=== PATIENT | female | born 1990 | race Caucasian/White ===

== ENCOUNTER → 2017-02-12 | Emergency (ER) | payer MEDICAID, OTHER ==
[~2017-02-12] MED LIST: FAMO20 PO; IBUP-232 PO; REGL10TA5 PO; ZOFR4TAB3 SL
--- NOTE | 2017-02-12 20:48 | PD ---
HPI Chief Complaint viability Date Seen: Feb 12, 2017 Travel History International Travel<30 Days: No Contact w/Intl Traveler<30Days: No Known Affected Area: No History of Present Illness HPI 26-year-old female who is at 32 weeks and 1 day comes in for viability. She is entering [facility] and has been weaned off for her Subutex. He will be in rehabilitation for the remainder of her and has seen an environmental inspector in [facility] and is transferring to Dr. Covarrubias for continued care. She has no current complaints. Para: 1 : 2 History Past Medical History Medical History: Denies Significant Hx Obstetric History Obstetric History Spontaneous vaginal delivery Past Surgical History Surgical History: No Previous Surgery Family History Family History: Negative Social History Alcohol Use: No Tobacco Use: No Substance Abuse: No Allergies-Medications (Allergen,Severity, Reaction): Coded Allergies: No Known Allergies (Verified , 08/17/14) Home Meds Active Scripts Metoclopramide Hcl (Reglan)10 Mg Tab10 Mg PO ONCE #20 TAB Prov:Valdemar Edwards DO 08/17/14 Reported Medications Famotidine (Pepcid 20 Mg Tab)20 Mg Tab20 Mg PO DAILY 08/17/14 Ondansetron (Zofran ODT)4 Mg Tab4 Mg SL Q6H PRN (NAUSEA) FOR NAUSEA/VOMITING 08/17/14 Review of Systems Except as stated in HPI: all other systems reviewed are Neg Physical Exam Narrative GENERAL: Well-nourished, well-developed patient. SKIN: Warm and dry. HEAD: Normocephalic and atraumatic. EYES: No scleral icterus. No injection or drainage. ENT: No nasal drainage noted. Mucous membranes pink. Airway patent. NECK: Supple, trachea midline. No JVD. CARDIOVASCULAR: Regular rate and rhythm without murmurs, gallops, or rubs. RESPIRATORY: Breath sounds equal bilaterally. No accessory muscle use. BREASTS: Bilateral exam showed no masses , no retractions, no nipple discharge. ABDOMEN/GI: Abdomen soft, non-tender, bowel sounds present, no rebound, no guarding Gravid to [-34] weeks size FHT's: Category: [1-] Baseline: 140 Reactive: Moderate Variability: Moderate Decels: Absent EXTREMITIES: No cyanosis or edema. BACK: Nontender without obvious deformity. No CVA tenderness. NEUROLOGICAL: Awake and alert. Motor and sensory grossly within normal limits. Five out of 5 muscle strength in all muscle groups. Normal speech. Data Data Vital Signs Reviewed: Yes MDM Plan 26-year-old at 32 weeks and 1 day with a category 1 heart rate tracing She is released for rehabilitation Diagnosis Diagnosis: Primary Impression: complicated by subutex maintenance, antepartum Additional Impression: 32 weeks gestation of Disposition: DISCHARGE HOME Patient Instructions: General Instructions Additional Instructions: heart rate is noted to be in the 130's with accelerations into the 140's. no decelerations noted. moderate variability. Departure Forms: Tests/Procedures Kadie Dunham MD Feb 12, 2017 20:48
== END | disposition home or self-care (01) ==
LOC: HOBED 19:43
DX: O26.893 Other specified pregnancy related conditions, third trimester (principal); Z3A.32 32 weeks gestation of pregnancy
CPT/HCPCS: 99283

== ENCOUNTER 2017-03-25 16:40 | Inpatient (IN) | payer MEDICAID ==
[~2017-03-25] VITALS: Ht 162.6 cm; Wt 90.7 kg
[2017-03-25] VITALS (41 sets, daily range): BP systolic 101–136; BP diastolic 57–98; PULSE 66–89; RESP 18; TEMP 98
[~2017-03-25 16:40] MED LIST changes: -IBUP-232 PO
[2017-03-25] MEDS ORDERED: LACTATED RINGER'S 1000 ML INJ 1,000 ML IV PRN (17:22)
[2017-03-25] MEDS ORDERED: LACTATED RINGER'S 1000 ML INJ 1,000 ML IV SCH (17:22)
[2017-03-25] MEDS ORDERED: CITRIC ACID-SODIUM CITRATE LIQ 30 ML UDC PO SCH (17:30)
[2017-03-25] MEDS ORDERED: MINERAL OIL 10 ML VIAL TOPICAL PRN (17:30)
[2017-03-25] MEDS ORDERED: LIDOCAINE HCL 1% 50 ML VIAL INFIL PRN (17:30)
[2017-03-25] MEDS ORDERED: SODIUM CHLORID 0.9% 500 ML INJ 500 ML IV PRN (17:30)
[2017-03-25] MEDS ORDERED: OXYTOCIN 30 UNITS-500ML PREMIX 500 ML IV ONE (17:30)
[2017-03-25] MEDS ORDERED: OXYTOCIN 30 UNITS-500ML PREMIX 500 ML IV SCH (17:30)
[2017-03-25] MEDS ORDERED: LIDOCAINE HCL 1% 50 ML VIAL I-DERMAL PRN (17:30)
--- NOTE | 2017-03-25 17:30 | MH ---
cc: JET ARCOS DATE OF ADMISSION 03/25/2017 DATE OF 1990 REASON FOR ADMISSION 38 plus week intrauterine with gross rupture of membranes in office. Secondary diagnosis of residing at [facility], opiate addiction in recovery. Her initial care was at the halfway and then she was with us in her third trimester. She has had no labor, gestational diabetes or hypertensive disease. Her first baby was born quite rapidly. She had an ultrasound today that showed normal TAMIA in 06/16 biophysical profile with the baby in the 86 percentile. Exam in the office ___ 3 cm, 80% and -1. Her membranes were stripped and when she sat up she had a significant gush of pinkish watery fluid. heart rate was evaluated for several minutes and it was determined that she should go to labor and delivery. PHYSICAL EXAMINATION VITAL SIGNS: Her weight is at 200, blood pressure is 120/80. She did not give me a urine sample today. She is residing at [facility]. LUNGS: Her lungs are clear to auscultation. HEART: Heart rate and rhythm are regular. DIRECTED EXAMINATION: Fundus was term. Estimated weight 7-1/2 pounds. Cervix was as described. EXTREMITIES: Show mild edema. Normal deep tendon reflexes. Normal pedal pulses. IMPRESSION 38 week intrauterine with spontaneous rupture of membranes in vertex position with a negative group B strep, history of opioid dependence, currently in recovery at terminal gaug[facility] [place]. PLAN The plan is to evaluate in the labor and delivery, assess for active labor and if not in labor she will be augmented with Pitocin. Anticipating vaginal delivery. Jet Arcos MD PPC/EO /4:54 PM /5:06 PM
[2017-03-25 17:42] LABS: BLOOD, URINE SMALL (NEG); COMMENT (UR) CULT NOT INDICATED; CULTURE IF INDICATED CULT NOT INDICATED; GLUCOSE,URINE NEG (NEG); KETONE, URINE NEG (NEG); MUCUS URINE FEW /lpf (OCC); NITRITE,URINE NEG (NEG); SQUAMOUS EPITHELIAL CELL URINE 1 /hpf (0-5); URINE COLOR YELLOW (YELLW/STRAW)
[2017-03-25] MEDS ORDERED: SODIUM CHLOR 0.9% 1000 ML INJ 1,000 ML IV PRN (17:42)
[2017-03-25 18:07] LABS: AUTOMATED NEUTROPHIL # 8.4 TH/MM3 (1.8-7.7); BASOPHIL % 0.2 % (0.0-2.0); EOSINOPHIL # 0.1 TH/MM3 (0-0.4); EOSINOPHIL % 1.2 % (0.0-4.0); HEMO FLAGS DIFF FINAL; LYMPH % 17.3 % (9.0-44.0); MEAN CELL VOLUME 90.1 FL (80.0-100.0); MEAN CORPUSCULAR HEMOGLOBIN 29.9 PG (27.0-34.0); MEAN CORPUSCULAR HGB CONC 33.2 % (32.0-36.0); NEUT % 72.3 % (16.0-70.0); PLATELET COUNT 146 TH/MM3 (150-450); RED BLOOD COUNT 3.99 MIL/MM3 (4.00-5.30); RED CELL DISTRIBUTION WIDTH 14.2 % (11.6-17.2); WHITE BLOOD COUNT 11.6 TH/MM3 (4.0-11.0)
[2017-03-25 18:59] LABS: AMPHETAMINE, URINE NEG (NEG); BARBITURATES, URINE NEG (NEG); COCAINE, URINE NEG (NEG)
[2017-03-25] MEDS ORDERED: fentaNYL 2MCG-BUPIV 0.125% INJ 100 ML ONE (21:35)
[2017-03-26] VITALS (38 sets, daily range): BP systolic 100–143; BP diastolic 56–122; PULSE 74–208; RESP 16–18; TEMP 98–98.4
--- NOTE | 2017-03-26 02:26 | PD.OB.DELI ---
Anesthesia: Epidural Episiotomy: Midline Vaginal Delivery: Normal Presentation: Occiput anterior Nuchal Cord: None Delayed cord clamping (45 sec): Yes Infant: Male One Minute : 9 Five Minute : 9 Weight: 8 Placenta: Spontaneous delivery Laceration: Vaginal laceration, 2 deg Repair: Chromic Nory Mena MD March 26, 2017 02:26
[2017-03-26] MEDS ORDERED: ALUMINUM/MAGNESIUM/SIMETH 30 ML CUP PO PRN (02:30)
[2017-03-26] MEDS ORDERED: BENZOCAINE 20% TOPICAL SPRAY 60 ML CAN TOPICAL PRN (02:30)
[2017-03-26] MEDS ORDERED: WITCH HAZEL 50%/GLYCERIN 12.5% 40 PAD JAR TOPICAL PRN (02:30)
[2017-03-26] MEDS ORDERED: ONDANSETRON ODT 4 MG TAB PO PRN (02:30)
[2017-03-26] MEDS ORDERED: ACETAMINOPHEN 325 MG TAB PO PRN (02:30)
[2017-03-26] MEDS ORDERED: DOCUSATE SODIUM 50 MG/SENNA 8.6 MG TAB PO PRN (02:30)
[2017-03-26] MEDS ORDERED: ZOLPIDEM TARTRATE 5 MG TAB PO PRN (02:30)
[2017-03-26] MEDS ORDERED: SODIUM CHLORIDE 0.9% FLUSH 10 ML FLUSH IV FLUSH PRN (02:30)
[2017-03-26] MEDS: IBUPROFEN 600 MG TAB PO PRN ×2 (02:40→10:49)
[2017-03-26] MEDS ORDERED: NO SYSTEM NARCOTICS PRN (03:15)
[2017-03-26] MEDS ORDERED: ePHEDrine/NS 25 MG/5 ML SYR IV PRN (03:15)
[2017-03-26] MEDS ORDERED: DO NOT ADMINISTER ANTICOAGULANTS PRN (03:15)
[2017-03-26] MEDS ORDERED: fentaNYL 2MCG-BUPIV 0.125% 100 ML EPIDURAL SCH (03:15)
[2017-03-26] MEDS: SODIUM CHLORIDE 0.9% FLUSH 10 ML FLUSH IV FLUSH SCH (09:00)
--- NOTE | 2017-03-26 12:08 | HHI.DCPOC ---
Discharge Care Plan Diagnosis: (1) Spontaneous vaginal delivery (2) Opiate addiction Your Health Problems Are: Vaginal delivery Report Symptoms to Your Doctor -Temperate above 100.5 degrees -Redness, of incision or excessive or foul smelling drainage -Unusual pain or calf pain -Increased vaginal bleeding -Painful or difficulty urinating -Feelings of extreme sadness or anxiety after 2 weeks Goals to Promote Your Health * To prevent worsening of your condition and complications * To maintain your health at the optimal level Directions to Meet Your Goals Take your medications as prescribed Follow your dietary instruction Follow activity as directed Ensure plenty of rest for recovery Drink fluids for hydration Keep your appointments as scheduled Take your immunizations and boosters as scheduled If your symptoms worsen call your PCP, if no PCP go to Urgent Care Center or Emergency Room Smoking is Dangerous to Your Health. Avoid second hand smoke Call the 24-hour crisis hotline for domestic abuse at Suma Rodriguez MD March 26, 2017 12:08
--- NOTE | 2017-03-26 12:49 | HHI.OB ---
Subjective Post Day: 0 Remarks doing well nursing is at [facility] and on no opioids or benzo's do not expect PERNELL Objective Vitals/I&O Vital Signs Date Time Temp Pulse Resp B/P Pulse Ox O2 Delivery O2 Flow Rate FiO2 03/26/17 05:00 98.4 80 16 104/60 03/26/17 04:15 75 106/56 03/26/17 04:00 18 03/26/17 04:00 89 106/58 03/26/17 03:45 98.0 18 03/26/17 03:45 85 102/60 03/26/17 03:31 83 100/61 03/26/17 03:30 18 03/26/17 03:15 78 113/67 03/26/17 03:00 80 117/76 03/26/17 02:45 94 115/76 03/26/17 02:45 18 03/26/17 02:31 109 107/67 03/26/17 02:30 98.2 18 03/26/17 02:15 208 143/122 03/26/17 02:00 93 141/85 03/26/17 02:00 97 03/26/17 01:55 91 03/26/17 01:50 86 03/26/17 01:45 87 134/84 03/26/17 01:45 81 03/26/17 01:35 92 03/26/17 01:31 81 119/74 03/26/17 01:30 84 03/26/17 01:25 83 03/26/17 01:20 87 03/26/17 01:15 86 124/87 03/26/17 01:15 80 03/26/17 01:10 77 03/26/17 01:05 86 03/26/17 01:01 78 116/70 03/26/17 01:00 79 03/26/17 00:55 79 03/26/17 00:50 78 03/26/17 00:45 76 121/80 03/26/17 00:45 78 03/26/17 00:40 77 03/26/17 00:35 80 03/26/17 00:31 126/73 03/26/17 00:31 81 03/26/17 00:30 82 03/26/17 00:16 18 03/26/17 00:15 76 122/74 03/26/17 00:15 79 03/26/17 00:10 79 03/26/17 00:05 74 03/26/17 00:00 77 109/59 03/26/17 00:00 78 03/25/17 23:55 76 03/25/17 23:50 71 03/25/17 23:45 75 03/25/17 23:45 75 101/64 03/25/17 23:40 74 03/25/17 23:35 84 03/25/17 23:30 79 108/57 03/25/17 23:30 74 03/25/17 23:30 18 03/25/17 23:25 74 03/25/17 23:20 74 03/25/17 23:15 74 03/25/17 23:15 75 107/66 03/25/17 23:10 81 03/25/17 23:05 77 03/25/17 23:00 75 112/64 03/25/17 23:00 98.0 18 03/25/17 23:00 75 03/25/17 22:55 77 03/25/17 22:50 71 03/25/17 22:46 74 104/62 03/25/17 22:45 76 03/25/17 22:44 74 109/67 03/25/17 22:41 89 136/81 03/25/17 22:40 67 03/25/17 22:36 66 120/70 03/25/17 22:35 77 03/25/17 22:31 68 124/66 03/25/17 22:30 71 03/25/17 22:25 77 120/69 03/25/17 22:25 68 03/25/17 22:21 18 03/25/17 22:20 71 03/25/17 22:20 78 118/71 03/25/17 22:15 76 115/67 03/25/17 22:15 78 03/25/17 22:10 79 03/25/17 22:10 78 118/71 03/25/17 22:06 78 120/68 03/25/17 22:05 79 03/25/17 22:01 77 129/80 03/25/17 22:00 82 03/25/17 21:55 83 126/98 03/25/17 21:55 67 03/25/17 21:52 77 109/77 03/25/17 21:30 67 124/80 03/25/17 21:00 76 111/76 03/25/17 20:30 75 122/74 03/25/17 20:00 82 108/73 03/25/17 20:00 18 03/25/17 19:30 98.0 18 03/25/17 19:30 84 106/67 03/25/17 19:02 84 109/60 03/25/17 18:29 86 113/77 Objective Remarks GENERAL: Well-nourished, well-developed patient. CARDIOVASCULAR: Regular rate and rhythm without murmurs, gallops, or rubs. RESPIRATORY: Breath sounds equal bilaterally. No accessory muscle use. ABDOMEN/GI: Abdomen soft, non-tender. Fundus: Firm, non-tender at umbilicus. GENITOURINARY: Light to moderate bleeding. EXTREMITIES: No cyanosis or edema, non-tender, without signs of DVT. Medications and IVs Current Medications Medications (Trade) Dose Ordered Sig/Faisal Route Start Time Stop Time Status Last Admin (NS Flush) 2 ml BID IV FLUSH 03/26/17 09:00 (NS Flush) 2 ml UNSCH PRN IV FLUSH 03/26/17 02:30 (Tylenol) 650 mg Q4H PRN PO 03/26/17 02:30 (Motrin) 600 mg Q6H PRN PO 03/26/17 02:30 03/26/17 10:49 (Americaine 20% Top Spr) 1 spray Q4H PRN TOPICAL 03/26/17 02:30 03/26/17 10:49 (Tucks Pads) 1 applic QID PRN TOPICAL 03/26/17 02:30 03/26/17 10:49 (Socorro-Colace) 2 tab Q12H PRN PO 03/26/17 02:30 03/26/17 10:49 (Ambien) 5 mg HS PRN PO 03/26/17 02:30 (M-M-R Ii Inj) 0.5 ml ONCE ONCE SQ 03/26/17 16:00 03/26/17 16:01 (Boostrix Inj) 0.5 ml ONCE ONCE IM 03/26/17 16:00 03/26/17 16:01 (Mag-Al Plus Susp Liq) 15 ml Q8H PRN PO 03/26/17 02:30 (Zofran Odt) 4 mg Q6H PRN PO 03/26/17 02:30 Miscellaneous Information No systemic narcotics to be given except... UNSCH PRN .XX 03/26/17 03:15 03/27/17 03:14 Miscellaneous Information DO NOT ADMINISTER ANY ANTICOAGUL... UNSCH PRN .XX 03/26/17 03:15 03/27/17 03:14 (fentaNYL 2MCG-BUPIV 0.125% INJ) 100 ml @ 0 mls/hr TITRATE EPIDURAL 03/26/17 03:15 (ePHEDrine/NS 25 MG/5 ML SYR) 10 mg UNSCH PRN IV 03/26/17 03:15 03/27/17 03:14 Assessment/Plan Discharge Planning discharge in am back to [facility] baby should be able to go with her no circ at this time Nory Covarrubias MD March 26, 2017 12:49
[2017-03-26] MEDS ORDERED: DIPHTH/TETANUS/ACEL PERTUSSIS (BOOSTER) 0.5 ML VIAL/PFS IM ONE (16:00)
[2017-03-26] MEDS ORDERED: MEASLES, MUMPS, RUBELLA VACCINE 0.5 ML VIAL SQ ONE (16:00)
[2017-03-27] MEDS: IBUPROFEN 600 MG TAB PO PRN ×3 (03:43→16:03)
--- NOTE | 2017-03-27 08:59 | HHI.OB ---
Subjective Post Day: 1 Remarks Doing well, no pain Nursing w/o issues today mild bleeding Objective Objective Remarks GENERAL: Well-nourished, well-developed patient. CARDIOVASCULAR: Regular rate and rhythm without murmurs, gallops, or rubs. RESPIRATORY: Breath sounds equal bilaterally. No accessory muscle use. ABDOMEN/GI: Abdomen soft, non-tender. Fundus: Firm, non-tender at umbilicus. GENITOURINARY: Light to moderate bleeding. EXTREMITIES: No cyanosis or edema, non-tender, without signs of DVT. Medications and IVs Current Medications Medications (Trade) Dose Ordered Sig/Faisal Route Start Time Stop Time Status Last Admin (NS Flush) 2 ml BID IV FLUSH 03/26/17 09:00 (NS Flush) 2 ml UNSCH PRN IV FLUSH 03/26/17 02:30 (Tylenol) 650 mg Q4H PRN PO 03/26/17 02:30 (Motrin) 600 mg Q6H PRN PO 03/26/17 02:30 03/27/17 03:43 (Americaine 20% Top Spr) 1 spray Q4H PRN TOPICAL 03/26/17 02:30 03/26/17 10:49 (Tucks Pads) 1 applic QID PRN TOPICAL 03/26/17 02:30 03/26/17 10:49 (Socorro-Colace) 2 tab Q12H PRN PO 03/26/17 02:30 03/26/17 10:49 (Ambien) 5 mg HS PRN PO 03/26/17 02:30 (Mag-Al Plus Susp Liq) 15 ml Q8H PRN PO 03/26/17 02:30 Ondansetron HCl 4 mg 4 mg Q6H PRN PO 03/26/17 02:30 (fentaNYL 2MCG-BUPIV 0.125% INJ) 100 ml @ 0 mls/hr TITRATE EPIDURAL 03/26/17 03:15 Assessment/Plan Problem List: (1) Spontaneous vaginal delivery (2) Opiate addiction Discharge Planning discharge back to [facility] baby should be able to go with her no circ at this time Suma Rodriguez MD March 27, 2017 08:59
[2017-03-27] MEDS: SODIUM CHLORIDE 0.9% FLUSH 10 ML FLUSH IV FLUSH SCH (09:00)
[2017-03-27] MEDS ORDERED: IBUP-232 PO (09:03)
[2017-03-27 20:00] VITALS: BP 118/73; PULSE 72; RESP 18; TEMP 98.8
[2017-03-28] MEDS: IBUPROFEN 600 MG TAB PO PRN (06:47)
[2017-03-28 08:47] VITALS: BP 116/74; PULSE 86; RESP 16; TEMP 98.3
--- NOTE | 2017-03-28 08:52 | HHI.OB ---
Subjective Post Day: 2 Remarks Doing well, baby under bili lights Objective Vitals/I&O Vital Signs Date Time Temp Pulse Resp B/P Pulse Ox O2 Delivery O2 Flow Rate FiO2 03/27/17 20:00 98.8 72 18 118/73 Objective Remarks GENERAL: Well-nourished, well-developed patient. CARDIOVASCULAR: Regular rate and rhythm without murmurs, gallops, or rubs. RESPIRATORY: Breath sounds equal bilaterally. No accessory muscle use. ABDOMEN/GI: Abdomen soft, non-tender. Fundus: Firm, non-tender at umbilicus. GENITOURINARY: Light to moderate bleeding. EXTREMITIES: No cyanosis or edema, non-tender, without signs of DVT. Medications and IVs Current Medications Medications (Trade) Dose Ordered Sig/Faisal Route Start Time Stop Time Status Last Admin (NS Flush) 2 ml BID IV FLUSH 03/26/17 09:00 (NS Flush) 2 ml UNSCH PRN IV FLUSH 03/26/17 02:30 (Tylenol) 650 mg Q4H PRN PO 03/26/17 02:30 (Motrin) 600 mg Q6H PRN PO 03/26/17 02:30 03/28/17 06:47 (Americaine 20% Top Spr) 1 spray Q4H PRN TOPICAL 03/26/17 02:30 03/26/17 10:49 (Tucks Pads) 1 applic QID PRN TOPICAL 03/26/17 02:30 03/26/17 10:49 (Socorro-Colace) 2 tab Q12H PRN PO 03/26/17 02:30 03/26/17 10:49 (Ambien) 5 mg HS PRN PO 03/26/17 02:30 (Mag-Al Plus Susp Liq) 15 ml Q8H PRN PO 03/26/17 02:30 Ondansetron HCl 4 mg 4 mg Q6H PRN PO 03/26/17 02:30 (fentaNYL 2MCG-BUPIV 0.125% INJ) 100 ml @ 0 mls/hr TITRATE EPIDURAL 03/26/17 03:15 Assessment/Plan Problem List: (1) Spontaneous vaginal delivery (2) Opiate addiction Discharge Planning PPD 2- doing well discharge back to [facility] no circ at this time baby deshawn be staying, mom will be in stay close room, warm aware Rodriguez,Suma C MD March 28, 2017 08:52
[2017-03-30 11:03] LABS: BATH SALTS (MDPV) UR NEG (NEG); ECSTASY (MDMA) UR NEG (NEG); GABAPENTIN UR NEG (NEG); HEROIN (6-ACETYLMORPHINE) UR NEG (NEG); HYDROMORPHONE U NEG (NEG); K2 SPICE UR NEG (NEG); OBMETHADONE UR NEG (NEG); OXYCODONE (PERCODAN) NEG (NEG); PHENCYCLIDINE URINE NEG (NEG)
== END 2017-03-28 11:54 | disposition home or self-care (01) | DRG 775 ==
LOC: HOBED 16:40 → H2EA 17:06 → H1EA 03-26 04:47
PROVIDERS: ADMIT Obstetrics & Gynecology; ATTEND Obstetrics & Gynecology
PROC: 00HU33Z Insertion of Infusion Device into Spinal Canal, Percutaneous Approach (ICD-10-PCS; 2017-03-25)
PROC: 3E0R3CZ (ICD-10-PCS; 2017-03-25)
PROC: 0W8NXZZ Division of Female Perineum, External Approach (ICD-10-PCS; principal; 2017-03-26)
PROC: 0KQM0ZZ Repair Perineum Muscle, Open Approach (ICD-10-PCS; 2017-03-26)
DX: O99.324 Drug use complicating childbirth (principal); Z37.0 Single live birth; F11.20 Opioid dependence, uncomplicated; O70.1 Second degree perineal laceration during delivery; Z3A.38 38 weeks gestation of pregnancy
CPT/HCPCS: 80307; 81001; 84112; 85025; 86850; 86900; 86901; 90715; 99285; G0481; J2590; J3010; J7120

== ENCOUNTER 2018-04-04 18:16 | Emergency (ER) | payer MEDICAID ==
[~2018-04-04] VITALS: Ht 162.6 cm; Wt 90.0 kg
[~2018-04-04 18:16] MED LIST changes: -FAMO20 PO; +IBUP-232 PO; -REGL10TA5 PO; -ZOFR4TAB3 SL
[2018-04-04 18:19] VITALS: BP 145/73; PULSE 78; RESP 20; TEMP 98; O2SAT 97
[2018-04-04] MEDS ORDERED: CEPH-460 PO (20:28)
--- NOTE | 2018-04-04 20:28 | PD ---
HPI Chief Complaint: Skin Problem Time Seen by Provider: 20:11 Travel History International Travel<30 days: No Contact w/Intl Traveler<30days: No Traveled to known affect area: No History of Present Illness HPI Patient is a 27-year-old female presenting to emerge department for evaluation a possible skin infection to her abdomen. Patient states it started 3 weeks ago as a small what appeared to be a bug bite. Over time is gotten larger and is tender. Patient states that the waistline of her pants rubs on it and irritates it. She denies any drainage, warmth, fevers. She denies any IV drug use. Symptom onset was gradual, symptoms are mild in nature. No alleviating factors. PFSH Past Medical History Medical History: Denies Significant Hx Diminished Hearing: No ?: Not LMP: 3 WEEKS AGO Social History Alcohol Use: No Tobacco Use: No Substance Use: No Allergies-Medications (Allergen,Severity, Reaction): Coded Allergies: No Known Allergies (Verified , 03/25/17) Reported Meds & Prescriptions Reported Meds & Active Scripts Active Ibuprofen 600 Mg Tab 600 Mg PO Q6H PRN Review of Systems Except as stated in HPI: all other systems reviewed are Neg Skin: Positive Lumps, Positive Change in Pigmentation Physical Exam Narrative GENERAL: Obese, well-developed, alert female. Presenting in no acute distress. SKIN: Warm and dry. 3 cm circular area of erythema and mild edema to the abdomen just right of the umbilicus. No fluctuance noted, no warmth noted. Blanching. HEAD: Normocephalic. EYES: No scleral icterus. No injection or drainage. NECK: Supple, trachea midline. No JVD or lymphadenopathy. CARDIOVASCULAR: Regular rate and rhythm without murmurs, gallops, or rubs. RESPIRATORY: Breath sounds equal bilaterally. No accessory muscle use. GASTROINTESTINAL: Abdomen soft, non-tender, nondistended. MUSCULOSKELETAL: No cyanosis, or edema. BACK: Nontender without obvious deformity. No CVA tenderness. Data Data Last Documented VS Vital Signs Date Time Temp Pulse Resp B/P (MAP) Pulse Ox O2 Delivery O2 Flow Rate FiO2 04/04/18 18:19 98.0 78 20 145/73 (97) 97 MDM Medical Decision Making Medical Screen Exam Complete: Yes Emergency Medical Condition: Yes Interpretation(s) Vital Signs Date Time Temp Pulse Resp B/P (MAP) Pulse Ox O2 Delivery O2 Flow Rate FiO2 04/04/18 18:19 98.0 78 20 145/73 (97) 97 Differential Diagnosis Cellulitis versus abscess versus dermatitis versus other Narrative Course Patient is well-appearing 27-year-old female presenting for evaluation of a skin lesion started 3 weeks ago as what appeared to be a small insect bite. No fluctuance on exam, no indication for I&D at this time. Patient will be started on Keflex, she was encouraged to keep her pants waistline from rubbing on it which could be irritating and causing to be more erythematous. Patient was encouraged to follow-up with a primary doctor or return to emergency department for any new worsening symptoms. She verbalized understanding, patient is stable for discharge. Diagnosis Primary Impression: Cellulitis Qualified Codes: L03.311 - Cellulitis of abdominal wall Referrals: Primary Care Physician Patient Instructions: Cellulitis (ED), General Instructions Additional Instructions: Follow-up with your primary doctor Complete course of antibiotics as prescribed Avoid waistband rubbing on affected area to avoid further irritation Return to emergency department for any new or worsening symptoms Med/Other Pt SpecificInfo: Prescription(s) given Scripts Cephalexin (Keflex) 500 Mg Cap 500 MG PO Q12H for Infection for 10 Days, #20 CAP 0 Refills Prov: Malinda Staton 04/04/18 Disposition: 01 DISCHARGE HOME Condition: Stable Malinda Staton April 04, 2018 20:28
== END 2018-04-04 20:55 | disposition home or self-care (01) ==
LOC: NEPD 18:16
DX: L03.311 Cellulitis of abdominal wall (principal)
CPT/HCPCS: 99283